=== PATIENT | male | born 1990 | race African-American/Black ===

== ENCOUNTER 2018-06-14 04:03 | Emergency (ER) | payer OTHER | END 2018-06-16 19:47 | disposition short-term general hospital (02) | LOC: JER 06-16 19:46 ==

== ENCOUNTER 2019-02-03 14:31 | Emergency (ER) | payer OTHER ==
[2019-02-03 14:39] VITALS: BP 102/45; PULSE 53; TEMP 97.8; BMI 30.7
--- NOTE | 2019-02-03 14:47 | PDOC ---
Rapid Medical Evaluation Chief Complaint: Suture/Staple Removal (other) Time Seen by Provider: 02/03/19 14:39 Medical Evaluation: Allergies Allergy/AdvReac Type Severity Reaction Status Date / Time No Known Allergies Allergy Verified 02/03/19 14:39 Vital Signs Temp Pulse Resp BP Pulse Ox 97.8 F 53 L 18 102/45 L 98 02/03/19 14:37 02/03/19 14:37 02/03/19 14:37 02/03/19 14:37 02/03/19 14:37 02/03/19 14:46 Pt c/o: sutures to left chest from a razor 15 days ago, utd tdap Pt on brief exam: healed sutures to left chest wall Pt ordered for: none Pt to proceed to the ED Discharge Disposition - Diagnosis Visit for suture removal - Discharge Dispostion Disposition: HOME Condition at time of disposition: Good - Referrals Referrals: Layo Cedeño [Primary Care Provider] - - Patient Instructions Printed Discharge Instructions: DI for Suture Removal Additional Instructions: Please wash area gently with mild soap and water May apply bacitracin, mederma or neosporin every other day Return to emergency room for fever, chills or drainage from wound - Post Discharge Activity Work/School Note: Back to Work
--- NOTE | 2019-02-03 15:07 | PDOC ---
Suture Removal/Wound Check HPI - History of Present Illness Chief Complaint: Suture/Staple Removal (other) Stated Complaint: STITCHES REMOVAL Time Seen by Provider: 02/03/19 14:39 History Source: Yes: Patient Exam Limitations: Yes: No Limitations - Previous ED Treatment Type of procedure performed on last visit: Yes: Laceration Repair Tetanus Immunization: Yes: Given at last ED visit Antibiotics Prescribed: No - Onset of Previous Treatment Date of Occurence: 01/22/19 Timing/Duration/Severity of Onset: reports: Prior to presentation Past History - Travel Traveled outside of the country in the last 30 days: No Close contact w/someone who was outside of country & ill: No - Past Medical History Allergies/Adverse Reactions: Allergies Allergy/AdvReac Type Severity Reaction Status Date / Time No Known Allergies Allergy Verified 02/03/19 14:39 Home Medications: Ambulatory Orders Melatonin 10 mg PO HS PRN 06/14/18 Risperidone [Risperdal] 4 mg PO DAILY 06/14/18 COPD: No Psychiatric Problems: Yes (Schizophrenia,depression,anxiety) - Suicide/Smoking/Psychosocial Hx Smoking History: Never smoked Have you smoked in the past 12 months: No Information on smoking cessation initiated: No Hx Alcohol Use: No Drug/Substance Use Hx: No Substance Use Type: Marijuana Hx Substance Use Treatment: No Suture Removal/Wound Check PE - Physical Exam Laceration/Wound Check Symptoms: reports: None Current Severity Level: None Maximum Severity Level: None Pain Localization: None Location of Laceration/Wound: left: Chest Pain Radiation: None *Review of Systems - Review of Systems Constitutional: No: Chills, Fever HEENTM: No: Blurred Vision, Nose Congestion Respiratory: No: Orthopnea, Shortness of Breath Cardiac (ROS): Yes: Other (laceration to left chest with sutures in place). No : Chest Pain, Lightheadedness, Palpitations ABD/GI: No: Constipated, Poor Appetite, Indigestion Musculoskeletal: No: Back Pain Integumentary: No: Bruising, Flushing, Lesions Neurological: No: Paresthesia, Tremors Psychiatric: No: Stressors *Physical Exam - Vital Signs Last Vital Signs Temp Pulse Resp BP Pulse Ox 97.8 F 53 L 18 102/45 L 98 02/03/19 14:37 02/03/19 14:37 02/03/19 14:37 02/03/19 14:37 02/03/19 14:37 - Physical Exam General Appearance: Yes: Nourished HEENT: positive: TMs Normal Neck: positive: Supple. negative: Lymphadenopathy (R), Lymphadenopathy (L) Respiratory/Chest: positive: Lungs Clear Cardiovascular: positive: Regular Rhythm, Regular Rate Extremity: positive: Normal Inspection Integumentary: positive: Normal Color, Other (left chest with sutures, wound well approximated, 15 nylon sutures removed, intact. Patient tolerated well. Wound with no drainage or erythwma) Neurologic: positive: Fully Oriented Medical Decision Making - Medical Decision Making 02/03/19 15:06 28 year old male with no significant medical or surgical history presents for suture removal. Sutures place in the [place] 01/22/19, denies fever chills or drainage from wounds. States no antibiotics given. Given tetanus vaccine at visit 02/03/19 15:08 Plan suture removal *DC/Admit/Observation/Transfer Diagnosis at time of Disposition: Visit for suture removal - Discharge Dispostion Disposition: HOME Condition at time of disposition: Good Decision to Admit order: No - Referrals - Patient Instructions Printed Discharge Instructions: DI for Suture Removal Additional Instructions: Please wash area gently with mild soap and water May apply bacitracin, mederma or neosporin every other day Return to emergency room for fever, chills or drainage from wound - Post Discharge Activity Forms/Work/School Notes: Back to Work
== END 2019-02-03 15:17 | disposition home or self-care (01) ==
LOC: JERFT 14:31
DX: Z48.02 Encounter for removal of sutures (principal)
CPT/HCPCS: 99281-25

== ENCOUNTER 2023-05-14 12:04 | Emergency (ER) | payer OTHER ==
[2023-05-14 12:23] VITALS: RESP 17
[2023-05-14 12:24] VITALS: BP 110/76; PULSE 76; TEMP 98.6; BMI 33.2
[2023-05-14 14:20] LABS: BASO % 0.6 % (0-2.0); EOS % 0.2 % (0-4.5); HEMATOCRIT 43.8 % (35.4-49); HEMOGLOBIN 14.3 GM/dL (11.7-16.9); LYMPH % 14.4 % (8-40); MCH 28.6 pg (25.7-33.7); MCHC 32.7 g/dl (32.0-35.9); MEAN CELL VOLUME 87.3 fl (80-96); MEAN PLT VOLUME 7.7 fl (7.5-11.1); MONO % 6.3 % (3.8-10.2); NEUT % 78.5 % (42.8-82.8); PLATELET COUNT 402 10^3/uL (134-434); RBC 5.01 M/mm3 (4.00-5.60); RDW 12.9 % (11.9-15.9); WHITE BLOOD COUNT 12.2 K/mm3 (4.0-10.0)
[2023-05-14] MEDS ORDERED: diphenhydrAMINE HCL 25 MG CAPSULE (FP) PO ONE ×2 (14:41→14:49)
[2023-05-14 14:56] LABS: POTASSIUM 4.1 mmol/L (3.5-5.1)
[2023-05-14 14:59] LABS: BLOOD UREA NITROGEN 9.4 mg/dL (7-18); CALCIUM 9.6 mg/dL (8.5-10.1); MAGNESIUM 1.9 mg/dL (1.8-2.4)
[2023-05-14 15:02] LABS: PHOSPHOROUS 3.6 mg/dL (2.5-4.9)
[2023-05-14 15:04] LABS: BILIRUBIN,TOTAL 0.6 mg/dL (0.2-1); TOT PROT 7.8 g/dl (6.4-8.2)
[2023-05-14] MEDS ORDERED: BENZTROPINE MESYLATE 1 MG TABLET PO ONE (15:19)
== END 2023-05-14 16:08 | disposition home or self-care (01) ==
LOC: JER 12:04
DX: R25.1 Tremor, unspecified (principal); G25.9 Extrapyramidal and movement disorder, unspecified
CPT/HCPCS: 36415; 80053; 83735; 84100; 84443; 85025; 93005; 93010; 99284-25